=== PATIENT | male | born 2000 | race Caucasian/White ===

== ENCOUNTER 2022-09-02 08:34 | Emergency (ER) | payer OTHER ==
[~2022-09-02] VITALS: Ht 175.3 cm; Wt 67.6 kg
[2022-09-02 08:46] VITALS: BP 139/71
[2022-09-02] MEDS ORDERED: DICYCLOMINE HCL LIQUID 20 MG, ALUMINUM HYD/MAG/SIMETHICONE 30 ML, LIDOCAINE VISCOUS 2% ... PO ONE ×3 (09:00)
[2022-09-02] MEDS ORDERED: DICYCLOMINE HCL LIQUID 10 MG/5 ML UDC ONE (09:09)
[2022-09-02] MEDS ORDERED: ALUMINUM HYD/MAG/SIMETHICONE 30 ML UDC ONE (09:09)
[2022-09-02] MEDS ORDERED: OMEP40EC24 PO (09:13)
--- NOTE | 2022-09-02 09:15 | NUR ---
22/M PRESENTS TO ED WITH C/O LUQ PAIN X1 HOUR PRIOR TO ARRIVAL TO ED, DENIES N/V/D, RECENT ALCOHOL OR DRUG USE, DENIE TAKING MEDS FOR SYMPTOMS. PATIENT C/O 01/14 BURNING LIKE PAIN, NON RADIATING.
--- NOTE | 2022-09-02 09:27 | NUR ---
Patient discharged with v/s stable. Written and verbal after care instructions ABOUT ABDOMINAL PAIN given and explained. Patient alert, oriented and verbalized understanding of instructions. Ambulatory with steady gait. All questions addressed prior to discharge. ID band removed. Patient advised to follow up with PMD. Rx of PRILOSEC given. Patient educated on indication of medication including possible reaction and side effects. Opportunity to ask questions provided and answered.
== END 2022-09-02 09:27 | disposition home or self-care (01) ==
LOC: MED 08:34
DX: R10.12 Left upper quadrant pain (principal); F17.200 Nicotine dependence, unspecified, uncomplicated; Z72.89 Other problems related to lifestyle
CPT/HCPCS: 99283